=== PATIENT | female | born 1970 ===

== ENCOUNTER 2018-06-18 09:55 | Outpatient (CLI) | payer OTHER | END 2018-06-18 09:56 | disposition home or self-care (01) | LOC: C.LAB 09:55 | DX: M25.561 Pain in right knee (principal) ==

== ENCOUNTER 2018-07-31 11:48 | Outpatient (CLI) | payer OTHER | END 2018-07-31 11:49 | disposition home or self-care (01) | LOC: C.MAMMO 11:48 | DX: Z12.31 Encounter for screening mammogram for malignant neoplasm of breast (principal) ==